=== PATIENT | female | born 1975 | race Caucasian/White ===

== ENCOUNTER 2024-08-23 12:11 | Emergency (ER) | payer OTHER ==
[2024-08-23 12:16] VITALS: BP 150/106; PULSE 91; RESP 18; TEMP 99.3; BMI 29.2
== END 2024-08-23 12:53 | disposition home or self-care (01) ==
LOC: FER 12:11
DX: Z48.02 Encounter for removal of sutures (principal)
CPT/HCPCS: 99281-25